=== PATIENT | female | born 1975 | race Caucasian/White ===

== ENCOUNTER 2018-11-06 10:32 | Emergency (ER) ==
[2018-11-06 10:44] VITALS: BP 136/92; TEMP 97.3; BMI 20.7
--- NOTE | 2018-11-06 10:56 | ED.PDOC ---
General ED Provider: Dr. JEANINE SCHMITT MD Chief Complaint: Non-specific Complaint Stated Complaint: i have Hep B, out of meds and inm afrasid what might happen Time Seen by Physician: 10:52 Mode of Arrival: Walk-In Information Source: Patient Exam Limitations: No limitations Nursing and Triage Documentation Reviewed and Agree: Yes Does patient meet sepsis criteria?: No If yes, has appropriate treatment been initiated?: Yes System Inflammatory Response Syndrome: Not Applicable Sepsis Protocol: For patient's 13 years and over: Temp is 96.8 and below OR 101 and greater Pulse >90 BPM Resp >20/minute Acutely Altered Mental Status Are patient's symptoms suggestive of a new infection, such as: -Pneumonia -Skin, Soft Tissue -Endocarditis -UTI -Bone, Joint Infection -Implantable Device -Acute Abdominal Infection -Wound Infection -Meningitis -Blood Stream Catheter Infection -Unknown Review of Systems - Review Of Systems Constitutional: Reports: No symptoms Eyes: Reports: No symptoms Ears, Nose, Mouth, Throat: Reports: No symptoms Respiratory: Reports: No symptoms Cardiac: Reports: No symptoms GI: Reports: No symptoms : Reports: No symptoms Musculoskeletal: Reports: No symptoms Skin: Reports: No symptoms Neurological: Reports: No symptoms Endocrine: Reports: No symptoms Hematologic/Lymphatic: Reports: No symptoms All Other Systems: Reviewed and Negative Past Medical History - Past Medical History Previously Healthy: Yes Endocrine: Reports: None Cardiovascular: Reports: None Respiratory: Reports: COPD, Asthma Hematological: Reports: None Gastrointestinal: Reports: None Genitourinary: Reports: None Neuro/Psych: Reports: Migraine, Anxiety, Depression Musculoskeletal: Reports: None Cancer: Reports: None Last Menstrual Period: unknown - Surgical History General Surgical History: Reports: Hysterectomy - Family History Family History: Reports: None - Social History Smoking Status: Current every day smoker, Heavy tobacco smoker Hx Substance Use: Yes (marijuana) Alcohol Screening: None Physical Exam - Physical Exam Appearance: Well-appearing, No pain distress, Well-nourished Eyes: TERRI, EOMI, Conjunctiva clear ENT: Ears normal, Nose normal, Oropharynx normal Respiratory: Airway patent, Breath sounds clear, Breath sounds equal, Respirations nonlabored Cardiovascular: RRR, Pulses normal, No rub, No murmur GI/: Soft, Nontender, No masses, Bowel sounds normal, No Organomegaly Musculoskeletal: Normal strength, ROM intact, No edema, No calf tenderness Skin: Warm, Dry, Normal color Neurological: Sensation intact, Motor intact, Reflexes intact, Cranial nerves intact, Alert, Oriented Psychiatric: Affect appropriate, Mood appropriate Critical Care Note - Critical Care Note Total Time (mins): 0 Course - Course Hematology/Chemistry: 11/06/18 11:05 Orders, Labs, Meds: Lab Review 11/06/18 11:05 Sodium 138.4 Potassium 4.55 Chloride 103.6 Carbon Dioxide 27.9 Anion Gap 11.45 BUN 9.9 Creatinine 0.57 L Estimated GFR (MDRD) 117.00 BUN/Creatinine Ratio 17.36 Glucose 82.3 Calcium 9.41 Total Bilirubin 0.33 AST 19.6 ALT 13.1 Alkaline Phosphatase 110.6 Total Protein 7.48 Albumin 4.84 Globulin 2.64 Albumin/Globulin Ratio 1.83 Orders Category Date Time Status CMP [COMPREHENSIVE METABOLIC PANEL] Stat LAB 11/06/18 11:05 Completed Ketorolac Tromethamine [Toradol] MEDS 11/06/18 11:30 Stat 60 mg IM ONCE STA Medications Generic Name Dose Route Start Last Admin Trade Name Kathy PRN Reason Stop Dose Admin Ketorolac Tromethamine 60 mg 11/06/18 11:30 Toradol IM 11/06/18 11:31 ONCE STA Vital Signs: Temp Pulse Resp BP Pulse Ox 11/06/18 10:33 97.3 F L 82 20 136/92 H 98 Departure - Departure Time of Disposition: 11:45 Disposition: HOME SELF-CARE Discharge Problem: Hepatitis Condition: Good Pt referred to PMD for follow-up: Yes IPMP verified?: No Allergies/Adverse Reactions: Allergies DEPRESSION MEDICATION Adverse Reaction (Intermediate, Uncoded 11/06/18 11:33) Vomiting pt unable to tell name of particular medication. vomit tramsdol and Tyl #3 codeine Adverse Reaction (Mild, Uncoded 11/06/18 11:33) Vomiting Home Medications: Ambulatory Orders 1 [No Reported Medications] 06/15/18 Transfer Form Completed: No Disposition Discussed With: Patient
[2018-11-06] MEDS ORDERED: TORADOL IM STA (11:30)
== END 2018-11-06 12:18 | disposition home or self-care (01) ==
LOC: ED 10:32
DX: B19.10 Unspecified viral hepatitis B without hepatic coma (principal); Z76.0 Encounter for issue of repeat prescription; F17.210 Nicotine dependence, cigarettes, uncomplicated
CPT/HCPCS: 36415; 80053; 96372; 99283